=== PATIENT | female | born 1990 | race Caucasian/White ===

== ENCOUNTER 2016-11-05 11:56 | Emergency (ER) | payer OTHER, SELFPAY ==
[2016-11-05] MEDS ORDERED: BENADRYL 25 MG CAPSULE PO ONE (12:24)
[2016-11-05] MEDS ORDERED: BENADRYL 25 MG CAPSULE ONE (12:26)
--- NOTE | 2016-11-05 12:30 | ERPHSYRPT ---
- History of Present Illness Time Seen by Provider: 11/05/16 12:27 Source: patient Exam Limitations: no limitations Patient Subjective Stated Complaint: PT REPORTS STARTING ON NEW BP MEDS A FEW DAYS AGO STATES THAT HER RIGHT LEG ET ARM FEEL SWOLLEN ET PAINFUL-DENIES SOB- DENIES COUGH-DENIES FEVER-DENIES DIZZINESS Triage Nursing Assessment: PT PINK WARM ET DRY-A & O X 3-ANSWERING ALL QEUSTIONS APPROPRITELY-NO OBVIOUS SWELLING NOTED AT THIS TIME-NO HIVES NOTED Physician History: 26-year-old female was recently started on hydrochlorothiazide for her high blood pressure, started having feeling like swollen upper extremity and lower extremity on the right side. Denies any other symptoms. Timing/Duration: today Associated Symptoms: denies symptoms Allergies/Adverse Reactions: No Known Drug Allergies Allergy (Verified 11/05/16 12:08) Home Medications: Hydrochlorothiazide 12.5 mg PO DAILY 11/05/16 [History] Levothyroxine Sodium 75 Mcg [Synthroid 75 Mcg] 75 mcg PO DAILY 11/05/16 [ History] Hx Tetanus, Diphtheria Vaccination/Date Given: Yes Hx Influenza Vaccination/Date Given: No Hx Pneumococcal Vaccination/Date Given: No Immunizations Up to Date: Yes - Review of Systems Constitutional: No Symptoms Eyes: No Symptoms Ears, Nose, & Throat: No Symptoms, No Throat Swelling Respiratory: No Symptoms Cardiac: No Symptoms Abdominal/Gastrointestinal: No Symptoms Musculoskeletal: No Symptoms Skin: Other (feels like her right upper and lower extrimity is swollen) - Past Medical History Pertinent Past Medical History: Yes Cardiac History: Hypertension Endocrine Medical History: Hypothyroidism - Past Surgical History Past Surgical History: Yes Female Surgical History: Section - Social History Smoking Status: Never smoker Exposure to second hand smoke: No Drug Use: none Patient Lives Alone: No - Female History Hx Last Menstrual Period: CONTROL Hx Now: Yes - Nursing Vital Signs Nursing Vital Signs: Initial Vital Signs Temperature 98.5 F Temperature Source Oral Pulse Rate 73 Respiratory Rate 22 Blood Pressure [Right Arm] 153/94 Pain Intensity 5 - Physical Exam General Appearance: no apparent distress Eye Exam: PERRL/EOMI Ears, Nose, Throat Exam: normal ENT inspection Neck Exam: normal inspection Respiratory Exam: normal breath sounds Cardiovascular Exam: regular rate/rhythm Gastrointestinal/Abdomen Exam: soft SpO2: 98 Oxygen Delivery: Room Air - Course Nursing assessment & vital signs reviewed: Yes Ordered Tests: Medication Summary Discontinued Medications Generic Name Dose Route Start Last Admin Trade Name Opal PRN Reason Stop Dose Admin Diphenhydramine HCl 25 mg 11/05/16 12:24 Benadryl 25 Mg Capsule PO 11/05/16 12:25 STAT ONE - Progress Progress: improved Counseled pt/family regarding: diagnosis, need for follow-up - Departure Time of Disposition: 12:30 Departure Disposition: Home Clinical Impression: Medication side effect Condition: Stable Critical Care Time: No Referrals: CHRISTAL HOLBROOK [Primary Care Provider] - Additional Instructions: follow up with your primary care physician tomorrow, STOP hydrochlorothiazide
[2016-11-05 12:39] VITALS: BP 129/79; PULSE 85; O2SAT 95
== END 2016-11-05 12:35 | disposition home or self-care (01) ==
LOC: ED 11:56
DX: M79.89 Other specified soft tissue disorders (principal); T50.2X5A Adverse effect of carbonic-anhydrase inhibitors, benzothiadiazides and other diuretics, initial encounter; I10 Essential (primary) hypertension; E03.9 Hypothyroidism, unspecified; Z79.899 Other long term (current) drug therapy
CPT/HCPCS: 99281; 99282

== ENCOUNTER 2019-04-13 08:20 | Emergency (ER) | payer MEDICAID, OTHER ==
[2019-04-13 08:36] VITALS: BP 160/95; PULSE 73; O2SAT 98
--- NOTE | 2019-04-13 09:13 | ERPHSYRPT ---
- History of Present Illness Source: patient Exam Limitations: no limitations Patient Subjective Stated Complaint: states got left thumb caught in safe door at [facility]. Triage Nursing Assessment: ambulated to room per self. skin w/d, color normal. small amt swelling noted to left thumb with moderate tenderness. slight bruising noted under nailbed. Physician History: Pt is a 28 y/o female that presented to the ER after injury to her thumb on the L. Pt stated, that she was opening the safe at work, and she was hurrying to get back, and when she closed the safe, her nail of the thumb on the L was cought in it. Pt states, had some bleeding around the nail, but that stopped. Pt does have an artificial nails on. Occurred: just prior to arrival Method of Injury: direct blow Quality: constant Severity of Pain-Max: mild Severity of Pain-Current: mild Extremities Pain Location: thumb: left (hurt by safe door.) Modifying Factors: Improves With: cold therapy Associated Symptoms: none Allergies/Adverse Reactions: hydrochlorothiazide Allergy (Verified 04/13/19 08:29) Home Medications: Levothyroxine Sodium 75 Mcg [Synthroid 75 Mcg] 75 mcg PO DAILY 11/05/16 [ History] Hx Tetanus, Diphtheria Vaccination/Date Given: No Hx Influenza Vaccination/Date Given: No Hx Pneumococcal Vaccination/Date Given: No - Review of Systems Constitutional: No Fever, No Chills Musculoskeletal: Other (Pain of the thumb on the L from injury.) Skin: No Rash Neurological: No Dizziness, No Focal Weakness, No Sensory Changes - Past Medical History Pertinent Past Medical History: Yes Cardiac History: Hypertension Endocrine Medical History: Hypothyroidism Other Medical History: anemia - Past Surgical History Past Surgical History: Yes Female Surgical History: Section - Social History Smoking Status: Never smoker Exposure to second hand smoke: No Drug Use: none Patient Lives Alone: No - Female History Hx Now: No - Nursing Vital Signs Nursing Vital Signs: Initial Vital Signs Temperature 98.1 F 04/13/19 08:23 Pulse Rate 73 04/13/19 08:23 Respiratory Rate 16 04/13/19 08:23 Blood Pressure 160/95 04/13/19 08:23 O2 Sat by Pulse Oximetry 98 04/13/19 08:23 Pain Scale Pain Intensity 8 - Physical Exam General Appearance: alert Eyes, Ears, Nose, Throat Exam: moist mucous membranes Hand Exam: nail injury (on the L thumb. Minimal bleeding around the artificial nails.) SpO2: 98 - Radiology Exams Left Hand X-ray Interpretation: Interpreted by me (No fracture of the distal phalange on the L thumb.) Ordered Tests: Active Orders 24 hr Category Date Time Status HAND (2 VIEW) Stat Exams 04/13/19 08:47 Taken - Progress Progress: unchanged Progress Note: 04/13/19 09:15 Pt was seen and examined. No change in ROS. Mild bleeding at base on nail. Artificial nail is glued on. XR was negative for fx. Pt was advised to use ice on the injured thumb, and use Ibuprofen or Tylenol as needed. Pt was advised not to replace the artificial nail, but let it grow up, and fall, so healthy nail will grow underneath it. Discussed with : Clive Will see patient in: office Counseled pt/family regarding: need for follow-up - Departure Departure Disposition: Home Clinical Impression: Injury of left thumb Condition: Stable Critical Care Time: No Referrals: CHRISTAL HOLBROOK [Primary Care Provider] - Plan of Treatment: F/U with PCP. Ice the finger and use OTC meds for pain.
--- NOTE | 2019-04-13 20:46 | XRAY ---
Indication: Thumb crush injury. Comparison: None 2 views of the left hand demonstrate nondisplaced 1st phalanx tuft fracture. No other bony, articular, or soft tissue abnormalities.
== END 2019-04-13 09:36 | disposition home or self-care (01) ==
LOC: ED 08:20
DX: S69.92XA Unspecified injury of left wrist, hand and finger(s), initial encounter (principal); W23.1XXA Caught, crushed, jammed, or pinched between stationary objects, initial encounter; Y93.89 Activity, other specified; E03.9 Hypothyroidism, unspecified
CPT/HCPCS: 73120; 99283